=== PATIENT | male | born 1995 | race Caucasian/White ===

== ENCOUNTER 2019-07-15 14:34 | Inpatient (IN) | payer MEDICAID ==
[~2019-07-15] VITALS: Ht 177.8 cm; Wt 100.0 kg
[2019-07-15 15:13] LABS: BASOPHIL % 0.4 % (0-2); RED CELL DISTRIBUTION WIDTH 12.9 % (11.5-14.5)
[2019-07-15 15:16] LABS: PLATELET COUNT 533 x10^3mcL (130-400)
[2019-07-15 15:34] LABS: CALCIUM 9.1 mg/dL (8.5-10.1); CARBON DIOXIDE 32.5 mmol/L (21-32); CHLORIDE SERUM 100 mmol/L (98-107); CREATININE SERUM 0.9 mg/dL (0.7-1.3); GFR1 > 60 mL/min; GLUCOSE SERUM 114 mg/dL (74-106); POTASSIUM SERUM 4.2 mmol/L (3.5-5.1); SODIUM SERUM 135 mmol/L (136-145)
[2019-07-15 15:40] LABS: ALKALINE PHOSPHATASE 101 U/L (46-116); ALT/SGPT 80 U/L (16-63); AST/SGOT 35 U/L (15-37); BILIRUBIN TOTAL 0.26 mg/dL (0.20-1.00); LIPASE 92 IU/L (73-393)
[2019-07-15 15:43] LABS: ALBUMIN 2.9 g/dL (3.4-5.0); TOTAL PROTEIN, SERUM 8.3 g/dL (6.4-8.2)
[2019-07-15 19:00] LABS: microscopic required? NO
[2019-07-15 19:06] LABS: UA SPECIFIC GRAVITY 1.025 (1.005-1.035); urine erythrocyte NEGATIVE (NEGATIVE)
[2019-07-15 19:44] LABS: AMPHETAMINE QUAL UR NONE DETECTED (See below)
[2019-07-15 20:10] VITALS: BP 128/78
[2019-07-16 04:40] VITALS: BP 121/73
[2019-07-16 07:45] VITALS: BP 128/77
[2019-07-16 08:07] LABS: BASOPHIL % 0.5 % (0-2); RED CELL DISTRIBUTION WIDTH 12.8 % (11.5-14.5)
[2019-07-16 08:09] LABS: PLATELET COUNT 447 x10^3mcL (130-400)
[2019-07-16 08:20] LABS: CALCIUM 8.5 mg/dL (8.5-10.1); CARBON DIOXIDE 29.3 mmol/L (21-32); CHLORIDE SERUM 103 mmol/L (98-107); CREATININE SERUM 0.8 mg/dL (0.7-1.3); GFR1 > 60 mL/min; GLUCOSE SERUM 90 mg/dL (74-106); MAGNESIUM 2.4 mg/dL (1.8-2.4); PHOSPHOROUS 3.7 mg/dL (2.5-4.9); POTASSIUM SERUM 4.4 mmol/L (3.5-5.1); SODIUM SERUM 139 mmol/L (136-145)
[2019-07-16 11:45] VITALS: BP 123/73
[2019-07-16 16:35] VITALS: BP 122/68
[2019-07-16 19:30] VITALS: BP 108/62
[2019-07-17 05:03] VITALS: BP 119/70
[2019-07-17 06:13] LABS: BASOPHIL % 0.6 % (0-2); RED CELL DISTRIBUTION WIDTH 12.6 % (11.5-14.5)
[2019-07-17 06:29] LABS: PLATELET COUNT 546 x10^3mcL (130-400)
[2019-07-17 06:47] LABS: CALCIUM 8.9 mg/dL (8.5-10.1); CARBON DIOXIDE 30.7 mmol/L (21-32); CHLORIDE SERUM 101 mmol/L (98-107); CREATININE SERUM 0.8 mg/dL (0.7-1.3); GFR1 > 60 mL/min; GLUCOSE SERUM 86 mg/dL (74-106); MAGNESIUM 2.4 mg/dL (1.8-2.4); PHOSPHOROUS 4.1 mg/dL (2.5-4.9); POTASSIUM SERUM 4.7 mmol/L (3.5-5.1); SODIUM SERUM 138 mmol/L (136-145)
[2019-07-17 08:06] VITALS: BP 122/78
[2019-07-17] MEDS ORDERED: FLA500 PO (09:14)
[2019-07-17 11:16] VITALS: BP 122/78
[2019-07-17 11:52] VITALS: BP 106/61
== END 2019-07-17 12:00 | disposition home or self-care (01) | DRG 251 ==
LOC: ED 14:34 → MU 18:06
PROVIDERS: Emergency Medicine; Family Medicine; ADMIT Internal Medicine
DX: R10.84 Generalized abdominal pain (principal); E44.1 Mild protein-calorie malnutrition; E87.1 Hypo-osmolality and hyponatremia
CPT/HCPCS: 90658; G0378; J2270; J2405; J2543; J3490; J7030; Q0092